=== PATIENT | female | born 2005 | race Caucasian/White ===

== ENCOUNTER 2023-05-20 07:01 | Observation (INO) ==
[2023-05-20 07:54] LABS: Urine Appearance Clear; Urine Bilirubin Negative (Negative); Urine Blood Negative (Negative); Urine Color Yellow; Urine Glucose Negative (Negative); Urine Ketones Negative (Negative); Urine Nitrite Negative (Negative); Urine Protein Trace (Negative); Urine Specific Gravity 1.027 (1.002-1.030); Urine Urobilinogen Negative (Negative); Urine pH 5.5 (5.0-8.0)
[2023-05-20] MEDS: Lactated Ringers 1000 ml BAG 1,000 ML IV ONE (09:04)
[2023-05-20 09:19] LABS: ABS Lymphocytes 0.7 10^3/uL (1.0-4.8); ABS Monocytes 0.9 10^3/uL (0.0-0.9); ABS Neutrophils 13.7 10^3/uL (1.5-7.6); Eosinophil % 0.2 %; Hematocrit 38.4 % (35-45); Hemoglobin 12.6 g/dL (11.5-14.3); Lymphocyte % 4.7 %; Mean Corpuscular Hemoglobin 28.5 pg (27-33); Mean Corpuscular Hgb Conc 32.7 g/dL (31-36); Mean Corpuscular Volume 87.1 fL (80-97); Platelet Count 164 10^3/uL (150-450); Red Blood Count 4.41 10^6/uL (3.63-4.92); Red Cell Distribution Width 13.8 % (12-17); White Blood Count 15.4 10^3/uL (3.8-11.8)
[2023-05-20 09:31] LABS: INR 1.08 (0.83-1.13)
[2023-05-20 10:03] LABS: ALT 7 U/L (7-52); AST 11 U/L (13-39); Albumin 5.3 g/dL (3.2-5.2); Albumin/Globulin Ratio 2.1 (1-3); Alkaline Phosphatase 71 U/L (35-149); Anion Gap 8 mmol/L (2-16); Blood Urea Nitrogen 11 mg/dL (6-24); C Reactive Protein < 1.00 mg/L (<8.01); CO2 Carbon Dioxide 27 mmol/L (22-32); Chloride 102 mmol/L (101-111); Creatinine, Serum 0.78 mg/dL (0.51-0.95); Globulin 2.5 g/dL (2-4); Glucose 105 mg/dL (70-100); Lipase < 10 U/L (11.0-82.0); Magnesium 1.7 mg/dL (1.9-2.7); Potassium 3.6 mmol/L (3.5-5.0); Sodium 137 mmol/L (135-145); Total Bilirubin 1.1 mg/dL (0.2-1.0); Total Protein 7.8 g/dL (6.4-8.9); eGFR CKD-EPI 112.1 (>60)
[2023-05-20 10:09] LABS: HCG Pregnancy < 0.60 mIU/mL
[2023-05-20] MEDS: Iohexol 300 (CONTRAST) 10 ML SDV IV ONE (11:17)
[2023-05-20] MEDS: Magnesium Sulfate 2 gm BAG 2 GM/50 ML BAG IVPB ONE (11:26)
[2023-05-20] MEDS: Piperacillin/Tazobac 3.375 BAG 3.375 GM/100 ML BAG IV ONE (12:47)
[2023-05-20] MEDS ORDERED: Ondansetron 4 mg VIAL 2 MG/ML 2 ml VIAL IV PRN ×2 (13:46→15:19)
[2023-05-20] MEDS ORDERED: HYDROmorphone 0.5 MG/0.5 ML SYRINGE IV SLOW PU PRN (13:54)
[2023-05-20] MEDS: Acetaminophen IV 1 GM/100ML 1,000 MG/100 ML BAG IV SCH (13:59)
[2023-05-20] MEDS ORDERED: fentaNYL 250 mcg/5 ml 50 MCG/ML 5 ml VIAL (250 MCG) ONE (14:46)
[2023-05-20] MEDS ORDERED: Bupivacaine 0.25% SDV 30 ML ONE (14:46)
[2023-05-20] MEDS ORDERED: Lidocaine 2% PF 5 ML VIAL ONE (14:46)
[2023-05-20] MEDS ORDERED: Propofol 10 MG/ML 20 ML BTL ONE (14:46)
[2023-05-20] MEDS ORDERED: Midazolam 2 mg/2 ml VIAL 1 mg/ml 2 ml VIAL (2 mg) ONE (14:46)
[2023-05-20] MEDS ORDERED: Rocuronium 50 mg VIAL 10 mg/ml 5 ml VIAL (50 mg) ONE (14:47)
[2023-05-20] MEDS ORDERED: Naloxone 0.4 mg VIAL 0.4 mg/ml 1 ml VIAL IV PRN (15:19)
[2023-05-20] MEDS ORDERED: fentaNYL 100 mcg/2 ml 50 MCG/ML VIAL IV PRN (15:19)
[2023-05-20] MEDS ORDERED: Dexamethasone IV 4 MG/ML VIAL 1 ml VIAL ONE (15:59)
[2023-05-20] MEDS ORDERED: Ondansetron 4 mg VIAL 2 MG/ML 2 ml VIAL ONE (15:59)
[2023-05-20] MEDS ORDERED: Glycopyrrolate IV 0.2 MG/ML 1 ML VIAL ONE (15:59)
[2023-05-20] MEDS ORDERED: Acetaminophen IV 1 GM/100ML 1,000 MG/100 ML BAG IV ONE (16:04)
[2023-05-20] MEDS ORDERED: Metoclopramide 5 MG/ML VIAL (10 mg) IV PRN (16:45)
[2023-05-20] MEDS: NS 0.9% 1000 ml BAG 1,000 ML IV SCH (18:01)
[2023-05-20] MEDS ORDERED: HYDROmorphone 1 MG/1 ML SYRINGE IV SLOW PU PRN (18:03)
[2023-05-20] MEDS: Piperacillin/Tazobac 3.375 BAG 3.375 GM/100 ML BAG IV SCH ×2 (18:11)
[2023-05-20] MEDS ORDERED: Calcium Carb (TUMS) 500 mg CHEW TAB PO PRN (18:19)
[2023-05-21 05:24] LABS: ABS Monocytes 0.7 10^3/uL (0.0-0.9); ABS Neutrophils 12.1 10^3/uL (1.5-7.6); ABS Nucleated RBC 0.01 10^3/ul; Hematocrit 30.9 % (35-45); Hemoglobin 10.3 g/dL (11.5-14.3); Lymphocyte % 7.2 %; Mean Corpuscular Hemoglobin 28.9 pg (27-33); Mean Corpuscular Hgb Conc 33.3 g/dL (31-36); Mean Corpuscular Volume 86.7 fL (80-97); Mean Platelet Volume 9.9 fL (7.5-11.2); Platelet Count 129 10^3/uL (150-450); Red Blood Count 3.56 10^6/uL (3.63-4.92); Red Cell Distribution Width 13.8 % (12-17); White Blood Count 13.8 10^3/uL (3.8-11.8)
[2023-05-21 05:43] LABS: Calcium 8.6 mg/dL (8.6-10.3); Creatinine, Serum 0.75 mg/dL (0.51-0.95); Potassium 4.4 mmol/L (3.5-5.0); eGFR CKD-EPI 117.5 (>60)
[2023-05-22 10:32] VITALS: BP 103/56
== END 2023-05-22 11:19 | disposition home or self-care (01) ==
LOC: EDHOLD 07:01 → ED 07:01 → EDHOLD 14:35 → AA 14:48 → SSU 17:23
PROVIDERS: ADMIT Surgery; ATTEND Surgery